=== PATIENT | female | born 1950 | race Caucasian/White ===

== ENCOUNTER 2019-03-17 23:05 | Emergency (ER) | payer OTHER ==
[~2019-03-17] VITALS: Ht 154.9 cm; Wt 72.6 kg
--- NOTE | 2019-03-17 23:06 | NUR ---
PT BIBA BLS TO ER BED 11
[2019-03-17 23:10] VITALS: BP 111/63
--- NOTE | 2019-03-17 23:16 | NUR ---
PATIENT PRESENTS TO ED WITH PT C/O BILATERAL LEG PAIN X 15 MINUTES. PT STATES PAIN STARTS IN HAMSTING AREA AND RADIATES DOWN TO BOTTOM OF FEET. PAIN IS 10/10. PT STATES HAVING PAIN LIKE THIS IN PAST ON ONE LEG. 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 PT STATES THAT HELPED THE PAIN. PMSC INTACT. PT ABLE TO MOVE LEGS, PT ABLE TO TRANSFERRE SELF TO [facility] BED FROM [facility] WITH OUT INCIDNET. KNDA HX: HIGH CHOLESROL, DEPRESSION AND DM. DENIES N/V/D; SKIN IS PINK/WARM/DRY; AAOX4 WITH EVEN AND STEADY GAIT; LUNGS CLEAR BL; HR EVEN AND REGULAR; PT DENIES ANY FEVER, CP, SOB, OR COUGH AT THIS TIME; PATIENT STATES PAIN OF 10/10 AT THIS TIME; VSS; PATIENT POSITIONED FOR COMFORT; HOB ELEVATED; BEDRAILS UP X2; BED DOWN. ER MD MADE AWARE OF PT STATUS.
--- NOTE | 2019-03-17 23:27 | NUR ---
DR. MONTOYA BEDSIDE EVALUATING PT
[2019-03-17] MEDS ORDERED: KETOROLAC 60 MG/2 ML VIAL IM ONE (23:30)
--- NOTE | 2019-03-17 23:35 | NUR ---
MEDICATED PER ERMDS ORDER, TOLERATED WELL.
--- NOTE | 2019-03-17 23:36 | NUR ---
Blood for labwork drawn from ISABEL MONTOYA. Patient tolerated WELL
[2019-03-17 23:46] LABS: HEMATOCRIT 31.3 % (36-48); MEAN CORPUSCULAR HEMOGLOBIN 25 pg (27-31); MEAN CORPUSCULAR HGB CONC 32 g/dL (33-37); MEAN CORPUSCULAR VOLUME 77.2 fL (80-94); PLATELET COUNT (AUTO) 186 K/uL (140-450); RED BLOOD CELL COUNT(AUTO) 4.05 MIL/uL (4.20-5.40); RED CELL DISTRIBUTION WIDTH 17.6 % (11.6-13.7); WHITE BLOOD COUNT (AUTO) 14.2 K/uL (4.8-10.8)
[2019-03-17 23:53] LABS: ANION GAP 12.5 (8-16); CARBON DIOXIDE 28.5 mmol/L (21-32); CREATININE 0.8 mg/dL (0.6-1.3)
[2019-03-18 00:04] LABS: LYMPHOCYTES % (MANUAL) 77 % (20-46); MONOCYTES % (MANUAL) 2 % (5-12)
--- NOTE | 2019-03-18 00:11 | NUR ---
ALL RESULTS BACK AND NOTED BY ERMD AND FOR D/C.
--- NOTE | 2019-03-18 00:13 | NUR ---
PT APPEAS TO BE IN NO DISTRESS. PT SLEEPING IN BED. PT WOKEN UP AND GIVEN DC PAPERWORK. Patient discharged with v/s stable. Written and verbal after care instructions given and explained. Patient alert, oriented and verbalized understanding of instructions. Wheel Chair Assisted with to FRIENDS car. All questions addressed prior to discharge. ID band removed. Patient advised to follow up with PMD. Rx of given. Patient educated on indication of medication including possible reaction and side effects. Opportunity to ask questions provided and answered. ALLOWED TIME TO ASK QUESTIONS. ALL QUESTIONS ANSWERED.
[2019-03-18 00:21] VITALS: BP 108/62
== END 2019-03-18 00:03 | disposition home or self-care (01) ==
LOC: MED 23:05
DX: M79.604 Pain in right leg (principal); M79.605 Pain in left leg; E11.9 Type 2 diabetes mellitus without complications; F32.9 Major depressive disorder, single episode, unspecified
CPT/HCPCS: 36415; 80048; 85025; 96372; 99283; J1885